=== PATIENT | female | born 1985 | race Two or more races ===

== ENCOUNTER 2022-10-02 17:03 | Emergency (ER) | payer SELFPAY ==
[~2022-10-02] VITALS: Ht 162.6 cm; Wt 69.6 kg
[2022-10-02 17:30] LABS: Basophils # (auto) 0 10 ^3/uL (0-0.2); Basophils % (auto) 0.5 % (0.0-2.0); Eosinophils # (auto) 0.1 10 ^3/uL (0-0.8); Eosinophils % (auto) 1.2 % (0.0-7.0); Hematocrit 42.5 % (36.0-46.0); Hemoglobin 14.4 g/dL (12.2-16.2); Lymphocytes # (auto) 2.3 10 ^3/uL (0.4-5.4); Lymphocytes % (auto) 30.9 % (10.0-50.0); Mean Corpuscular Hemoglobin 32.3 pg (28.0-32.0); Mean Corpuscular Hgb Conc. 33.8 g/dL (32.0-36.0); Mean Corpuscular Volume 95.6 fL (80.0-100.0); Monocytes # (auto) 0.5 10 ^3/uL (0-1.3); Monocytes % (auto) 7.1 % (0.0-12.0); Neutrophils # (auto) 4.5 10 ^3/uL (1.6-8.6); Neutrophils % (auto) 60.3 % (37.0-80.0); Nucleated Red Blood Cells % 0.1 %; Red Blood Cells 4.45 10^6/uL (4.0-5.20); Red Cell Distribution Width 12.5 % (11.8-14.3); White Blood Cell 7.5 10^3/uL (4.4-10.8)
[2022-10-02 17:45] LABS: INR 1.07 (0.9-1.15); Partial Thromboplastin Time 31.9 sec (24.6-33.4)
[2022-10-02 17:54] LABS: Calcium 8.7 mg/dL (8.5-10.1); Potassium 3.7 mmol/L (3.5-5.1)
[2022-10-02 17:59] LABS: BUN/Creatinine Ratio 18.8 (10.0-20.0); Bilirubin, Total 0.4 mg/dL (0.2-1.0); Magnesium 2.3 mg/dL (1.6-2.6); Total Protein 7.7 g/dL (6.4-8.2)
[2022-10-02] MEDS ORDERED: BENZ200C64 PO (21:40)
[2022-10-02] MEDS ORDERED: AZITTAB PO (21:40)
[2022-10-02] MEDS ORDERED: PRED20TA2 PO (21:40)
[2022-10-02] MEDS ORDERED: ALBU108A5 IN (21:40)
[2022-10-02] MEDS ORDERED: IBU600T PO (21:40)
[2022-10-02] MEDS ORDERED: FLUT1SPR9 (21:40)
[2022-10-02 21:46] VITALS: BP 135/89
== END 2022-10-02 22:01 | disposition home or self-care (01) ==
LOC: ER 17:03
DX: M94.0 Chondrocostal junction syndrome [Tietze] (principal); J32.9 Chronic sinusitis, unspecified; E03.9 Hypothyroidism, unspecified
CPT/HCPCS: 36415; 71045; 80053; 83735; 83880; 84443; 84484; 85025; 85610; 85730; 93005

== ENCOUNTER 2023-05-29 14:10 | Emergency (ER) | payer MEDICAID ==
[~2023-05-29] VITALS: Ht 165.1 cm; Wt 74.5 kg
[~2023-05-29 14:10] MED LIST: ALBU108A5 IN; AZITTAB PO; BENZ200C64 PO; FLUT1SPR9; IBU600T PO; PRED20TA2 PO
[2023-05-29 15:48] VITALS: BP 136/83; PULSE 71; RESP 18; TEMP 97.3; O2SAT 100
[2023-05-29] MEDS ORDERED: AMOX875T3 PO (15:56)
[2023-05-29] MEDS ORDERED: IBUP-1454 PO (15:56)
== END 2023-05-29 16:14 | disposition home or self-care (01) ==
LOC: ER 14:10
DX: H66.92 Otitis media, unspecified, left ear (principal); K04.7 Periapical abscess without sinus; Z79.899 Other long term (current) drug therapy

== ENCOUNTER 2025-02-02 07:42 | Emergency (ER) | payer MEDICAID ==
[~2025-02-02] VITALS: Ht 167.6 cm; Wt 77.7 kg
[~2025-02-02 07:42] MED LIST changes: +AMOX875T3 PO; +IBUP-1454 PO
[2025-02-02 08:05] VITALS: BP 137/94; PULSE 58; RESP 16; TEMP 98.2; O2SAT 99
--- NOTE | 2025-02-02 08:05 | ED.PDOC ---
Eye-HPI HPI Comments A 39 YEAR OLD FEMALE PRESENTS TO THE ED WITH COMPLAINT OF LEFT EAR PAIN. PATIENT STATES SHE HAS BEEN EXPERIENCING LEFT EAR PAIN OFF AND ON FOR THE PAST 3 WEEKS. PATIENT REPORTS SHE HAS BEEN PRESCRIBED CLINDAMYCIN BY HER PRIMARY CARE PHYSICIAN, BUT NOTES THERE HAS BEEN NO IMPROVEMENT IN HER SYMPTOMS. PATIENT DENIES FEVER, CHILLS, SHORTNESS OF BREATH, CHEST PAIN, ABDOMINAL PAIN, NAUSEA, VOMITING, HEADACHE, OR OTHER COMPLAINTS. NO OTHER SYMPTOMS OR MODIFYING FACTORS AT THIS TIME. PATIENT IS ALERT, ORIENTED X 4, AND HAS STEADY GAIT. Chief Complaint: Earache Time Seen by MD: 07:48 Primary Care Provider: NONE Reviewed Notes: Nurses Notes, Medications, Allergies Allergies: Coded Allergies: NO KNOWN ALLERGIES (Unverified , 05/29/23) Home Meds Active Scripts Ciprofloxacin-Hydrocortisone (Cipro Hc 0.2-1 %) 1 Sue Sue, 4 DROP OT BID, #7.5 ML Prov:TEQUILA PALACIOS 02/02/25 Prednisone (Prednisone) 20 Mg Tab, 60 MG PO DAILY, #15 TAB Prov:TEQUILA PALACIOS 02/02/25 Amoxicillin & Pot Clavulanate (AUGMENTIN TABLET) 875 Mg Tb, 875 MG PO BID for 10 Days, #20 TAB Prov:TEQUILA PALACIOS 02/02/25 Ibuprofen (Ibuprofen) 600 Mg Tab, 1 TAB PO TID, #30 TAB Prov:TEQUILA PALACIOS 05/29/23 Amoxicillin Trihydrate (Amoxicillin) 875 Mg Tab, 1 TAB PO BID, #20 TAB Prov:TEQUILA PALACIOS 05/29/23 Ibuprofen Micronized (MOTRIN TABLET) 600 Mg Tb, 1 TAB PO TID PRN, #20 TAB as needed for pain Prov:ROXANA PRAKASH Q SENIOR LANDSCAPE ARCHITECT 10/02/22 Albuterol Sulfate (Albuterol Sulfate Hfa) 108 Mcg/Act Aer, 1 PUFF IN Q6HR, #1 AER As needed for cough congestion shortness of breath wheezing Prov:ROXANA PRAKASH Q SENIOR LANDSCAPE ARCHITECT 10/02/22 Benzonatate (Benzonatate) 200 Mg Cap, 1 CAP PO TID, #20 CAP as needed for cough Prov:DELIA PRAKASHALDA Q SENIOR LANDSCAPE ARCHITECT 10/02/22 Fluticasone Propionate (Nasal) (Flonase Allergy Relief Ch) 50 Mcg/Act Spr, 1 SPRAY NA BID, #1 SPRAY each nostrils Prov:ROXANA PRAKASH Q SENIOR LANDSCAPE ARCHITECT 10/02/22 Prednisone (Prednisone) 20 Mg Tab, 1 TAB PO DAILY for 5 Days, #5 TAB Prov:ROXANA PRAKASH Q SENIOR LANDSCAPE ARCHITECT 10/02/22 Azithromycin (Zithromax Z-Taco) 250 Mg Tab, 250 MG PO DAILY for 5 Days, #5 TAB 2 tabs today then 1 tab start tomorrow for 4 days Prov:ROXANA PRAKASH SENIOR LANDSCAPE ARCHITECT 10/02/22 Information Source: Patient Mode of Arrival: Ambulatory Timing: Days Duration: Since onset, Days Prehospital treatment: None Quality: Pain, Red Lids: Normal Conjunctiva: Normal Cornea: Normal Pupils: Normal EOM: Normal Fundus: Normal Slit lamp exam: Normal Anterior chamber: Normal Mouth: Normal ENT Ear Exam: Normal, Red, Bulging, Dull, Normal Nose: Normal Sinuses: Normal Oropharynx: Normal Onset: Spontaneous Throat Exposed to: None History of: None Last Tetanus: Unknown Modifying factors: Nothing Associated signs and symptoms: Ear Pain Past Medical History PAST MEDICAL HISTORY: Denies Surgical History: Denies all surgeries SHIP FASTENER History: No Pertinent SHIP FASTENER History Family History Family History: Reviewed,noncontributory to illness Social History Smoker: Non-Smoker Alcohol: Denies ETOH Use Drugs: Denies Drug Use Lives In: Home Constitutional: denies: chills, diaphoresis, fatigue, fever, malaise, sweats, weakness, others EENTM: reports: ear pain, ear ringing; denies: blurred vision, double vision, ear bleeding, ear discharge, ear drainage, eye pain, eye redness, hearing loss, mouth pain, mouth swelling, nasal discharge, nose bleeding, nose congestion, nose pain, photophobia, tearing, throat pain, throat swelling, voice changes, others Respiratory: denies: cough, hemoptysis, orthopnea, SOB at rest, shortness of breath, SOB with excertion, stridor, wheezing, others Cardiovascular: denies: chest pain, dizzy spells, diaphoresis, Dyspnea on exertion, edema, irregular heart beat, left arm pain, lightheadedness, palpitations, PND, syncope, others Gastrointestinal: denies: abdomen distended, abdominal pain, blood streaked bowels, constipated, diarrhea, dysphagia, difficulty swallowing, hematemesis, melena, nausea, poor appetite, poor fluid intake, rectal bleeding, rectal pain, vomiting, others Genitourinary: denies: abnormal vagina bleeding, burning, dyspareunia, dysuria, flank pain, frequency, hematuria, incontinence, pain, , vagina discharge, urgency, others Neurological: denies: dizziness, fainting, headache, left sided numbness, left sided weakness, numbness, paresthesia, pre-existing deficit, right sided numbness, right sided weakness, seizure, speech problems, tingling, tremors, weakness, others Musculoskeletal: denies: back pain, gout, joint pain, joint swelling, muscle pain, muscle stiffness, neck pain, others Integumetry: denies: bruises, change in color, change in hair/nails, dryness, laceration, lesions, lumps, rash, wounds, others Allergic/Immunocompromised: denies: Difficulty Healing, Frequent Infections, Hives, Itching, others Hematologic/Lymphatic: denies: anemia, blood clots, easy bleeding, easy bruising, swollen glands, others Endocrine: denies: excessive hunger, excessive sweating, excessive thirst, excessive urination, flushing, intolerance to cold, intolerance to heat, unexplained weight gain, unexplained weight loss, others Psychiatric: denies: anxiety, bipolar disorder, depression, hopeless, panic disorder, schizophrenia, sleepless, suicidal, others All Other Systems: Reviewed and Negative Physical Exam General Appearance: No Apparent Distress, Normal HEENT: PERRL/EOMI, Pharynx Normal, TM Abnormal (L) (ERYTHEMA AND DULL WITH EFFUSION OF LEFT TM, NO BLEEDING AND BLOOD CLOTS. ) Neck: Full Range of Motion, Non-Tender, Normal, Normal Inspection Respiratory: Chest Non-Tender, Lungs Clear, No Accessory Muscle Use, No Respiratory Distress, Normal Breath Sounds Cardiovascular: No Edema, No JVD, No Murmur, No Gallop, Normal Peripheral Pulses, Regular Rate/Rhythm Breast Exam: Deferred Gastrointestinal: No Organomegaly, Non Tender, No Pulsatile Mass, Normal Bowel Sounds, Soft Genitalia: Deferred Pelvic: Deferred Rectal: Deferred Extremities: No calf tenderness, Normal capillary refill, Normal inspection, Normal range of motion, Non-tender, No pedal edema Musculoskeletal : Apperance: Normal Neurologic: Alert, welder first class II-XII nml as Tested, No Motor Deficits, Normal Affect, Normal Mood, No Sensory Deficits Cerebellar Function: Normal Reflexes: Normal Skin: Dry, Normal Color, Warm Peripheral Pulses: 2+ carotid (R), 2+ carotid (L) Lymphatic: No Adenopathy Was a procedure done? Was a procedure done?: No EENT DIFF Eye: N/A Ear: Cerumen Impaction, Otitis Externa, Otitis Media, Pharyngitis, Sinusitis Nose: N/A Mouth: Other Sore Throat: N/A X-Ray, Labs, Meds, VS Vital Signs Date Time Temp Pulse Resp B/P (MAP) Pulse Ox O2 Delivery O2 Flow Rate FiO2 02/02/25 08:05 58 16 99 Room Air 02/02/25 08:05 98.2 58 16 137/94 (108) 99 98.2 02/02/25 07:43 98.2 58 16 137/94 99 98.2 X-Ray, Labs, Meds, VS Comment EXTERNAL MEDICAL RECORDS REVIEWED: [NONE] INDEPENDENT HISTORIANS: [NONE] SOCIAL DETERMINANTS OF HEALTH: [NONE] LABS ORDERED: NONE REVIEWED AND INTERPRETED RESULTS: NONE IMAGING ORDERED: NONE TREATMENTS ORDERED: NONE PROCEDURES PERFORMED: NONE CRITICAL CARE TIME: NONE I HAVE DISCUSSED THE PATIENT WITH THE ATTENDING PHYSICIAN DR. XAVIER AND HE AGREES WITH THE PATIENT'S PLAN OF CARE AND DISPOSITION. BASED ON HISTORY OF PRESENT ILLNESS, AND PHYSICAL EXAM, PATIENT WILL BE DISCHARGED HOME. DISCUSSED PLAN FOR DISCHARGE HOME WITH RX [AUGMENTIN, PREDNISONE, AND CIPRODEX EARDROPS]. MEDICATION WARNINGS GIVEN. SHARED DECISION MAKING: PATIENT INSTRUCTED TO FOLLOW UP WITH PRIMARY CARE PROVIDER IN 1-2 DAYS FOR RE-EVALUATION OF SYMPTOMS. PATIENT VERBALIZES UNDERSTANDING TO RETURN TO ED FOR NEW OR WORSENING SYMPTOMS OR IF FOLLOW UP WITH PCP CANNOT BE OBTAINED. PATIENT FEELS COMFORTABLE GOING HOME AT THIS TIME. ALL QUESTIONS ADDRESSED AT TIME OF DISCHARGE. Time of 1ST Reevaluation: 08:11 Reevaluation 1ST: Improved Patient Education/Counseling: Diagnosis, Treatment, Need For Follow Up Family Education/Counseling: Diagnosis, Treatment, Need For Follow Up Medical Screening: No EMC Exist At This Time SEPSIS Sepsis Screen Date sepsis recognized/suspect: Feb 02, 2025 Time Sepsis recognized/suspect: 0745 Recent Procedure: No On Antibiotic Therapy: No Respiratory Rate >20: No Heart Rate >90: No Temp<36 C (96.8 F) or >38.3 C: No SBP <90 or MAP <65 mmHG: No New Acute Mental Status Change: No Is the patient on CPAP, BIPAP,: No Vital Signs Date Time Temp Pulse Resp B/P (MAP) Pulse Ox O2 Delivery O2 Flow Rate FiO2 02/02/25 08:05 58 16 99 Room Air 02/02/25 08:05 98.2 58 16 137/94 (108) 99 98.2 02/02/25 07:43 98.2 58 16 137/94 99 98.2 Departure 1 Departure Time of Disposition: 08:11 Impression: Primary Impression: Acute serous otitis media, left ear Qualified Codes: H65.05 - Acute serous otitis media, recurrent, left ear Disposition: HOME / SELF CARE / HOMELESS Condition: Stable Additional Instructions: FOLLOW-UP WITH PCP IN 1 TO 2 DAYS FOR REFERRAL TO ENT SPECIALIST. TAKE MEDICATIONS PRESCRIBED. RETURN TO ED FOR ANY NEW OR WORSENING SYMPTOMS. e-Prescriptions Ciprofloxacin-Hydrocortisone (Cipro Hc 0.2-1 %) 1 Sue Sue 4 DROP OT BID, #7.5 ML Prov: TEQUILA PALACIOS 02/02/25 Prednisone (Prednisone) 20 Mg Tab 60 MG PO DAILY, #15 TAB Prov: TEQUILA PALACIOS 02/02/25 Amoxicillin & Pot Clavulanate (AUGMENTIN TABLET) 875 Mg Tb 875 MG PO BID for 10 Days, #20 TAB Prov: TEQUILA PALACIOS 02/02/25 Discharged With: Self Critical Care Note Critical Care Time?: No Stability Stability form required: No I personally scribed for TEQUILA PALACIOS ([email or web address]) on 02/02/25 at 08:05. Electronically submitted by Frandy Bolivar ([email or web address]). TEQUILA PALACIOS Feb 02, 2025 08:05
[2025-02-02] MEDS ORDERED: CIPRSUS OT (08:08)
[2025-02-02] MEDS ORDERED: PRED20TA2 PO (08:08)
[2025-02-02] MEDS ORDERED: AUG875T PO (08:08)
== END 2025-02-02 08:11 | disposition home or self-care (01) ==
LOC: ER 07:44
DX: H65.02 Acute serous otitis media, left ear (principal); Z79.52 Long term (current) use of systemic steroids; Z79.1 Long term (current) use of non-steroidal anti-inflammatories (NSAID); Z79.899 Other long term (current) drug therapy